=== PATIENT | male | born 1965 | race Caucasian/White ===

== ENCOUNTER 2023-06-08 04:49 | Day surgery (SDC) | payer BC ==
[2023-06-06 09:56] VITALS: BMI 31.7
[2023-06-08 09:54] VITALS: TEMP 97.8
[2023-06-08 10:20] VITALS: BP 120/85; PULSE 55; RESP 16
== END 2023-06-08 10:33 | disposition home or self-care (01) ==
LOC: JASU-ENDO 04:49
PROVIDERS: ATTEND Student in an Organized Health Care Education/Training Program
PROC: 0DBL8ZX Excision of Transverse Colon, Via Natural or Artificial Opening Endoscopic, Diagnostic (ICD-10-PCS; 2023-06-08)
PROC: 0DBN8ZX Excision of Sigmoid Colon, Via Natural or Artificial Opening Endoscopic, Diagnostic (ICD-10-PCS; principal; 2023-06-08 09:15)
DX: Z12.11 Encounter for screening for malignant neoplasm of colon (principal); D12.5 Benign neoplasm of sigmoid colon; D12.3 Benign neoplasm of transverse colon; K57.30 Diverticulosis of large intestine without perforation or abscess without bleeding
CPT/HCPCS: 88305-TC